=== PATIENT | male | born 1965 | race Caucasian/White ===

== ENCOUNTER → 2023-01-05 | Outpatient (REF) | payer OTHER | LOC: M SFHCDERM 17:26 | PROVIDERS: ATTEND Physician Assistant | DX: L57.0 Actinic keratosis (principal) ==

== ENCOUNTER → 2024-02-13 | Outpatient (REF) | payer BC, OTHER | LOC: M LAB REF 08:29 | PROVIDERS: ATTEND Plastic Surgery Surgery of the Hand | DX: D22.39 Melanocytic nevi of other parts of face (principal) ==